=== PATIENT | female | born 1935 | race Caucasian/White ===

== ENCOUNTER 2019-05-26 13:31 | Emergency (ER) | payer MEDICARE, BC ==
[~2019-05-26] VITALS: Ht 157.5 cm; Wt 44.0 kg
--- NOTE | 2019-05-26 13:36 | NUR ---
PT JANETTE RA 38 [facility] [place] for Low bp as per report, latest bp 131/70, PT IS AAOX3, NOT IN RESPIRATORY DISTRESS, HOOKED TO MONITOR, KEPT RESTED AND COMFORTABLE, WILL CONTINUE TO MONITOR.
[2019-05-26] MEDS ORDERED: TIMO5SOL11 EACHEYE (13:38)
[2019-05-26] MEDS ORDERED: CETI10TA14 PO (13:38)
[2019-05-26] MEDS ORDERED: CHOL100040 PO (13:38)
[2019-05-26] MEDS ORDERED: ASCO500T9 PO (13:38)
[2019-05-26] MEDS ORDERED: ASPI-1152 PO (13:38)
[2019-05-26] MEDS ORDERED: BRIN8DRO EACHEYE (13:38)
[2019-05-26] MEDS ORDERED: LEVO50TA8 PO (13:38)
[2019-05-26] MEDS ORDERED: MIDO5TAB4 PO ×2 (13:38→13:39)
[2019-05-26] MEDS ORDERED: GABA-534 PO (13:38)
[2019-05-26] MEDS ORDERED: LATA2.5D7 EACHEYE (13:38)
--- NOTE | 2019-05-26 13:45 | NUR ---
AWAITING ER MD FOR EVAL.
--- NOTE | 2019-05-26 14:15 | NUR ---
AT BEDSIDE FOR EVAL.
[2019-05-26] MEDS ORDERED: IV NS 0.9% 500 ML BAG IV ONE (15:00)
[2019-05-26 15:10] LABS: BASOPHILS # (AUTO) 0.1 /CMM (0.0-0.2); BASOPHILS % (AUTO) 0.6 % (0.0-2.0); EOSINOPHILS % (AUTO) 1.3 % (0.0-6.0); HEMATOCRIT 42 % (33-45); HEMOGLOBIN 13.5 g/dL (11.5-14.8); LYMPHOCYTES # (AUTO) 1.1 /CMM (0.8-4.8); LYMPHOCYTES % (AUTO) 11.2 % (20.0-44.0); MEAN CORPUSCULAR HGB CONC 32 g/dl (31.0-36.0); MEAN CORPUSCULAR VOLUME 98 fL (82-100); MONOCYTES # (AUTO) 0.4 /CMM (0.1-1.30); MONOCYTES % (AUTO) 4.6 % (2.0-12.0); NEUTROPHILS # (AUTO) 7.9 /CMM (1.8-8.9); NEUTROPHILS % (AUTO) 82.3 % (43.0-81.0); PLATELET COUNT (AUTO) 137 /CMM (150-450); RED BLOOD CELL COUNT(AUTO) 4.27 MIL/uL (4.0-5.2); WHITE BLOOD COUNT (AUTO) 9.6 K/uL (4.3-11.0)
[2019-05-26 15:19] LABS: CALCIUM, SERUM 9.3 mg/dL (8.5-10.1); CARBON DIOXIDE 23 mmol/L (21-32); CHLORIDE 104 mmol/L (98-107); CREATININE 1.2 mg/dL (0.6-1.3); GLUCOSE 114 mg/dL (74-106); POTASSIUM 4.7 mmol/L (3.5-5.1); SODIUM SERUM 136 mmol/L (136-145); UREA NITROGEN, BLOOD 25 mg/dL (7-18)
[2019-05-26 15:25] LABS: ALANINE AMINOTRANSFERASE 15 U/L (12-78); ALBUMIN 3.6 g/dL (3.4-5.0); ALKALINE PHOSPHATASE 77 U/L (46-116); ASPARTATE AMINOTRANSFERASE 26 U/L (15-37); BILIRUBIN,DIRECT 0.1 mg/dL (0.0-0.2); BILIRUBIN,TOTAL 0.6 mg/dL (0.2-1.0); TOTAL PROTEIN, SERUM 7.4 g/dL (6.4-8.2)
--- NOTE | 2019-05-26 16:05 | NUR ---
URINE SPECIMEN COLLECTED AND SENT TO LAB
[2019-05-26 16:16] LABS: APPEARANCE,URINE Clear (CLEAR); BILIRUBIN,URINE Negative (NEGATIVE); BLOOD, URINE Negative Ery/uL (NEGATIVE); COLOR,URINE Yellow (YELLOW); KETONES,URINE Negative (NEGATIVE); LEUKOCYTE ESTERASE ,URINE Negative (NEGATIVE); NITRITE, URINE Negative (NEGATIVE); PROTEIN,URINE 30 mg/dl (NEGATIVE); UGLUCOSE Negative (NEGATIVE); UROBILINOGEN,URINE 0.2 EU/dL (0.2)
[2019-05-26 16:18] LABS: BACTERIA,URINE Few /HPF (None Seen); COARSE GRANULAR CASTS,URINE Few /LPF (None Seen); HYALINE CASTS, URINE Few /LPF (None Seen); MUCUS,URINE Moderate /LPF (None Seen); RBC,URINE 0-2 /HPF (0-2); SQUAMOUS EPITHELIAL CELL,UR Few /HPF (None Seen); WBC,URINE 0-2 /HPF (0-3)
[2019-05-26 16:48] VITALS: BP 158/82
--- NOTE | 2019-05-26 16:48 | NUR ---
IV removed. Catheter intact and site benign. Pressure and 4x4 applied to site. No bleeding noted. Patient discharged to home in stable condition. Written and verbal after care instructions given. Patient verbalizes understanding of instruction.
== END 2019-05-26 16:48 | disposition home or self-care (01) ==
LOC: ER 13:35
DX: R42 Dizziness and giddiness (principal); I10 Essential (primary) hypertension; E78.00 Pure hypercholesterolemia, unspecified; I48.91 Unspecified atrial fibrillation; Z95.0 Presence of cardiac pacemaker; Z95.818 Presence of other cardiac implants and grafts; Z88.0 Allergy status to penicillin; Z88.6 Allergy status to analgesic agent; Z88.8 Allergy status to other drugs, medicaments and biological substances; Z79.899 Other long term (current) drug therapy; Z79.82 Long term (current) use of aspirin
CPT/HCPCS: 36415; 80048; 80076; 81001; 84484; 85025; 93005; 99284; J7040; 81000-TC

== ENCOUNTER 2019-07-09 19:27 | Inpatient (IN) | payer MEDICARE, BC ==
[~2019-07-09] VITALS: Ht 147.3 cm; Wt 42.2 kg
[~2019-07-09 19:27] MED LIST: ASCO-352 PO; ASPI-1152 PO; BRIN8DRO EACHEYE; CETI10TA14 PO; CHOL100040 PO; GABA-534 PO; LATA2.5D7 EACHEYE; LEVO50TA8 PO; MIDO5TAB4 PO; TIMO5SOL11 EACHEYE
[2019-07-09] MEDS ORDERED: ALBUTEROL FS 2.5 MG/3 ML VIAL.NEB NEB ONE (20:00)
[2019-07-09] MEDS ORDERED: IPRATROPIUM NEB FS 0.5 MG/2.5 ML AMPUL.NEB NEB ONE (20:00)
[2019-07-09] MEDS ORDERED: IPRATROPIUM NEB FS 0.5 MG/2.5 ML AMPUL.NEB ONE (20:07)
[2019-07-09] MEDS ORDERED: ALBUTEROL FS 2.5 MG/3 ML VIAL.NEB ONE (20:07)
[2019-07-09 20:31] LABS: BASOPHILS % (AUTO) 0.3 % (0.0-2.0); EOSINOPHILS % (AUTO) 2.2 % (0.0-6.0); HEMATOCRIT 44 % (33-45); HEMOGLOBIN 13.9 g/dL (11.5-14.8); LYMPHOCYTES # (AUTO) 1.7 /CMM (0.8-4.8); LYMPHOCYTES % (AUTO) 11.7 % (20.0-44.0); MEAN CORPUSCULAR HGB CONC 32 g/dl (31.0-36.0); MEAN CORPUSCULAR VOLUME 98 fL (82-100); NEUTROPHILS # (AUTO) 11.7 /CMM (1.8-8.9); NEUTROPHILS % (AUTO) 78.8 % (43.0-81.0); PLATELET COUNT (AUTO) 210 /CMM (150-450); RED BLOOD CELL COUNT(AUTO) 4.46 MIL/uL (4.0-5.2); WHITE BLOOD COUNT (AUTO) 14.8 K/uL (4.3-11.0)
[2019-07-09 20:49] LABS: CALCIUM, SERUM 9.4 mg/dL (8.5-10.1); CARBON DIOXIDE 34 mmol/L (21-32); CHLORIDE 100 mmol/L (98-107); CREATININE 0.9 mg/dL (0.6-1.3); GLUCOSE 146 mg/dL (74-106); POTASSIUM 3.5 mmol/L (3.5-5.1); SODIUM SERUM 139 mmol/L (136-145); UREA NITROGEN, BLOOD 21 mg/dL (7-18)
[2019-07-09 20:53] LABS: ALANINE AMINOTRANSFERASE 30 U/L (12-78); ALBUMIN 3.6 g/dL (3.4-5.0); ALKALINE PHOSPHATASE 90 U/L (46-116); ASPARTATE AMINOTRANSFERASE 34 U/L (15-37); BILIRUBIN,DIRECT 0.1 mg/dL (0.0-0.2); BILIRUBIN,TOTAL 0.4 mg/dL (0.2-1.0); TOTAL PROTEIN, SERUM 7.8 g/dL (6.4-8.2)
--- NOTE | 2019-07-09 20:59 | NUR ---
DONE WITH BREATHING TX, FAMILY AT THE BED SIDE. PT REPORTED FEELING MUCH BETTER. O2 SAT INCREASE FROM 92 TO 98% ON R/A. WILL CONT TO MONITOR.
[2019-07-09] MEDS ORDERED: LEVOFLOXACIN 750 MG /D5W 150ML PIGGYBACK IV ONE (21:30)
[2019-07-09] MEDS ORDERED: IV NS 0.9% 500 ML BAG IV ONE (21:30)
--- NOTE | 2019-07-09 22:40 | NUR ---
PT WAS TRANSFERRED TO 116 . BED SIDE REPORT GIVEN TO SALLIE.
[2019-07-09 23:00] VITALS: BP 171/72
[2019-07-09] MEDS ORDERED: ACETAMINOPHEN 325 MG TABLET PO PRN (23:00)
[2019-07-09] MEDS ORDERED: ONDANSETRON HCL/PF 4 MG/2 ML VIAL IVP PRN (23:00)
[2019-07-09] MEDS ORDERED: HYDROCODONE/APAP 5/325MG 1 EACH TABLET PO PRN (23:00)
[2019-07-09] MEDS ORDERED: ZOLPIDEM TARTRATE 5 MG TABLET PO PRN (23:00)
[2019-07-09] MEDS ORDERED: MAGNESIUM HYDROXIDE 30 ML UDC PO PRN (23:00)
[2019-07-09] MEDS ORDERED: Z GUARD REMEDY 2 OZ OINT TP PRN (23:00)
[2019-07-09] MEDS ORDERED: MAG HYDROX/AL HYDROX/SIMETH 30 ML UDC PO PRN (23:00)
--- NOTE | 2019-07-09 23:36 | NUR ---
MS RN NOTE ADMITTED FEMALE PT 84 YEARS OLD FROM ER WITH THE DX OF SOB BY HERMILO HSU. A/O X 3, NO SOB, NO DISTRESS OR DISCOMFORT NOTED. PT WITH PRODUCTIVE COUGH, CRACKLES SOUNDS IN LUNG COLLINS ON AUSCULTATION. INFUSED LEVAQUIN WHICH IS STARTED IN ER LFA SL # 20 G INTACT AND PATENT. KEPT HER HOB ELEVATED. O2 3L VIA N/C O2 SAT 98%. DTR AT BED SIDE. SKIN ASSESSMENT DONE, PICTURES PLACED IN THE CHART. SIDE RAILS UP X 2 AND CALL LIGHT WITHIN REACH. CONTINUE TO MONITOR HER.
[2019-07-09] MEDS: HYDROCHLOROTHIAZIDE 25 MG TABLET PO SCH (23:52)
[2019-07-09] MEDS: GABAPENTIN 300 MG CAPSULE PO SCH (23:52)
--- NOTE | 2019-07-09 23:59 | NUR ---
MS RN NOTE DUE MEDS GIVEN. ALSO PT REQUESTING FOR SLEEPING MED. AMBIEN 5 MG PO GIVEN. CONTINUE TO MONITOR HER.
[2019-07-10] MEDS: ALBUTEROL HALF STRENGTH 1.25 MG/3 ML VIAL.NEB NEB SCH ×4 (00:32→19:56)
[2019-07-10] MEDS ORDERED: FUROSEMIDE 20 MG/2 ML VIAL IV SCH (01:00)
[2019-07-10] MEDS ORDERED: IPRATROPIUM NEB FS 0.5 MG/2.5 ML AMPUL.NEB NEB PRN (01:00)
[2019-07-10] MEDS ORDERED: ALBUTEROL HALF STRENGTH 1.25 MG/3 ML VIAL.NEB NEB PRN (01:00)
--- NOTE | 2019-07-10 03:35 | NUR ---
JIN RN NOTE PT IN BED AWAKE, BP CHECKED 238/122. HERMILO ORTHOPEDIC SHOE MAKER INFORMED. NEW ORDER RECEIVED. ORDER CARRIED OUT. PT STATUS CHANGED TO JIN. CHARGE NURSE INFORMED.
[2019-07-10 03:45] VITALS: BP 238/122
--- NOTE | 2019-07-10 03:47 | NUR ---
JIN RN NOTE HYDRALAZINE 10 MG IVP GIVEN FOR HIGH BP. PT IS IN NO DISTRESS OR DISCOMFORT. DENIES PAIN. WILL RECHECK BP IN 15 MINUTES.
[2019-07-10 04:00] VITALS: BP 93/38
[2019-07-10] MEDS ORDERED: hydrALAZINE HCL IV 20 MG VIAL IV PRN (04:00)
--- NOTE | 2019-07-10 06:44 | NUR ---
JIN RN NOTE PT IN BED ASLEEP, AROUSABLE. B/P RECHECK 112/46 HR 75. NO DISTRESS OR DISCOMFORT NOTED. NO S/S OF PAIN NOTED. WILL ENDORSE TO DAY SHIFT NURSE FOR CONTINUE TO MONITOR.
[2019-07-10 06:53] LABS: BASOPHILS % (AUTO) 0.2 % (0.0-2.0); EOSINOPHILS % (AUTO) 1.1 % (0.0-6.0); HEMATOCRIT 40 % (33-45); HEMOGLOBIN 12.8 g/dL (11.5-14.8); LYMPHOCYTES # (AUTO) 1.3 /CMM (0.8-4.8); LYMPHOCYTES % (AUTO) 8.2 % (20.0-44.0); MEAN CORPUSCULAR HGB CONC 32 g/dl (31.0-36.0); MEAN CORPUSCULAR VOLUME 96 fL (82-100); MONOCYTES # (AUTO) 0.9 /CMM (0.1-1.30); MONOCYTES % (AUTO) 5.8 % (2.0-12.0); NEUTROPHILS # (AUTO) 13.2 /CMM (1.8-8.9); NEUTROPHILS % (AUTO) 84.7 % (43.0-81.0); PLATELET COUNT (AUTO) 175 /CMM (150-450); RED BLOOD CELL COUNT(AUTO) 4.16 MIL/uL (4.0-5.2); WHITE BLOOD COUNT (AUTO) 15.6 K/uL (4.3-11.0)
[2019-07-10 07:11] LABS: CALCIUM, SERUM 8.9 mg/dL (8.5-10.1); CREATININE 0.9 mg/dL (0.6-1.3); MAGNESIUM 1.6 mg/dL (1.8-2.4); PHOSPHORUS 2.6 mg/dL (2.5-4.9); POTASSIUM 3.4 mmol/L (3.5-5.1)
--- NOTE | 2019-07-10 07:34 | NUR ---
TD RN OPENING NOTE RECEIVED PATIENT A/O X3 PATIENT IN BED WITH 3L OF O2 TOLERATING WELL WITH NO SIGN OF SOB. PATIENT HAS IV ACCESS ON LFA #20G S/L. ON THE MONITOR SHOWING SR IN THE 90'S. ALL SAFETY PRECAUTIONS APPLIED. BED ALARM ON WITH CALL LIGHT WITHIN REACH. WILL CONTINUE TO MONITOR PATIENT FOR MARITA.
[2019-07-10] MEDS: LEVOTHYROXINE SODIUM 50 MCG TABLET PO SCH (07:53)
[2019-07-10 08:00] VITALS: BP 122/40
[2019-07-10] MEDS: HYDROCHLOROTHIAZIDE 25 MG TABLET PO SCH (09:00)
[2019-07-10] MEDS: DORZOLAMIDE OPTH 2% 10 ML BOTTLE EACHEYE SCH ×2 (09:00→17:00)
[2019-07-10] MEDS: GABAPENTIN 300 MG CAPSULE PO SCH ×2 (09:09→17:22)
[2019-07-10] MEDS: CHOLECALCIFEROL (VITAMIN D 3) 400 UNIT TABLET PO SCH (09:10)
[2019-07-10] MEDS: ASCORBIC ACID 500 MG TABLET PO SCH (09:11)
[2019-07-10] MEDS: ASPIRIN EC 81 MG TABLET.DR PO SCH (09:12)
[2019-07-10] MEDS: TIMOLOL 0.5% SOLN OPHTH 5 ML BOTTLE EACHEYE SCH (09:22)
[2019-07-10] MEDS: BRIMONIDINE TARTRATE OPHT SOLN 5 ML BOTTLE EACHEYE SCH ×2 (09:23→17:22)
[2019-07-10] MEDS: IV D5/ 0.9% NACL 1,000 ML IV PRN (11:01)
[2019-07-10] MEDS ORDERED: POTASSIUM CHLORIDE 20 MEQ TAB.PRT.SR PO SCH (11:30)
[2019-07-10 12:00] VITALS: BP_SYST 124; BP_SYST 126; BP_DIAS 52
--- NOTE | 2019-07-10 12:09 | NUR ---
PROFESSIONAL ADVISOR NOTE PATIENT IN BED WITH NO SIGN OF ANY DISTRESS. PATIENT TOLERATING 3L OF 02 WITH NO SIGN OF ANY SOB. ALL SAFETY PRECAUTIONS APPLIED. ENDORSED PATIENT TO MORNING SHIFT NURSE FOR MARITA.
[2019-07-10] MEDS: Magnesium 1GM/D5W 100ML PREMIX 100 ML IV SCH ×2 (13:04→14:22)
[2019-07-10 16:00] VITALS: BP 138/46
--- NOTE | 2019-07-10 19:17 | NUR ---
BRANCH SERVICES MANAGER CLOSING NOTES Pt in bed, resting comfortably. No sob noted, vital signs wnl. Denies any pain or discomfort. IV line intact, patent and flushed well. No signs of infiltration noted. Keep patient clean and dry. Bed in low position and locked. Call light within reach. All needs met. Endorsed to [facility] shift for MARITA. Addendum: 07/10/19 at 1937 by VIJI GALLARDO RN Advance Directives copy from daughter was endorsed to [facility] shift corinna
[2019-07-10 20:00] VITALS: BP 108/53
[2019-07-10] MEDS ORDERED: LEVOFLOXACIN (500MG) 500 MG TABLET PO SCH (21:00)
[2019-07-10] MEDS: LATANOPROST EYE DROP 0.005% 2.5 ML BOTTLE EACHEYE SCH ×2 (21:36→22:11)
[2019-07-10] MEDS ORDERED: cetrizine 10 MG TABLET PO SCH (22:00)
--- NOTE | 2019-07-10 22:00 | NUR ---
TELE AUTOMATIC PILOT MECHANIC INITIAL NOTES Got report from another nurse dexter for continuation of patient care. seen pt in bed resting at this time with eyes closed, breathing even and non-labored , not in any acute distress noted. kept her warm and comfortable at all times. place call light at reach.
--- NOTE | 2019-07-11 | NUR ---
tele community coordinator for [employer] notes pt sleeping comfortably in bed without any acute distress noted. tele SR per monitor.
[2019-07-11 01:05] VITALS: BP 102/47
[2019-07-11] MEDS: IV D5/ 0.9% NACL 1,000 ML IV PRN (01:49)
[2019-07-11] MEDS: ALBUTEROL HALF STRENGTH 1.25 MG/3 ML VIAL.NEB NEB SCH ×4 (03:30→15:30)
[2019-07-11 04:00] VITALS: BP 127/79
[2019-07-11 07:08] LABS: BASOPHILS % (AUTO) 0.2 % (0.0-2.0); EOSINOPHILS % (AUTO) 1.6 % (0.0-6.0); HEMATOCRIT 40 % (33-45); HEMOGLOBIN 13.2 g/dL (11.5-14.8); LYMPHOCYTES # (AUTO) 1.8 /CMM (0.8-4.8); LYMPHOCYTES % (AUTO) 11.9 % (20.0-44.0); MEAN CORPUSCULAR HGB CONC 33 g/dl (31.0-36.0); MEAN CORPUSCULAR VOLUME 96 fL (82-100); MONOCYTES # (AUTO) 1.2 /CMM (0.1-1.30); MONOCYTES % (AUTO) 8.1 % (2.0-12.0); NEUTROPHILS # (AUTO) 11.5 /CMM (1.8-8.9); NEUTROPHILS % (AUTO) 78.2 % (43.0-81.0); PLATELET COUNT (AUTO) 164 /CMM (150-450); RED BLOOD CELL COUNT(AUTO) 4.14 MIL/uL (4.0-5.2); WHITE BLOOD COUNT (AUTO) 14.8 K/uL (4.3-11.0)
[2019-07-11 07:27] LABS: CALCIUM, SERUM 8.8 mg/dL (8.5-10.1); MAGNESIUM 2.2 mg/dL (1.8-2.4); PHOSPHORUS 2.5 mg/dL (2.5-4.9); POTASSIUM 3.6 mmol/L (3.5-5.1)
--- NOTE | 2019-07-11 07:37 | NUR ---
tele laundry manager closing notes pt awake and alert , morning care done. all due meds given and all needs met. stable hector the night and slept well. Tele SR wiht pAC per monitor. kept her warm and comfortable at all times. place call light at reach. will endorse to am nurse for continuity of care.
[2019-07-11 08:00] VITALS: BP 135/57
--- NOTE | 2019-07-11 08:00 | NUR ---
ms rn received on bed, awake,alert,oriented x3,not in any form of distress, respirations even and unlabored,no sob noted,all needs attended.
[2019-07-11] MEDS: ASPIRIN EC 81 MG TABLET.DR PO SCH (08:44)
[2019-07-11] MEDS: CHOLECALCIFEROL (VITAMIN D 3) 400 UNIT TABLET PO SCH (08:44)
[2019-07-11] MEDS: GABAPENTIN 300 MG CAPSULE PO SCH (08:44)
[2019-07-11] MEDS: ASCORBIC ACID 500 MG TABLET PO SCH (08:45)
[2019-07-11] MEDS: HYDROCHLOROTHIAZIDE 25 MG TABLET PO SCH (08:46)
[2019-07-11] MEDS: LEVOTHYROXINE SODIUM 50 MCG TABLET PO SCH (08:47)
[2019-07-11] MEDS: BRIMONIDINE TARTRATE OPHT SOLN 5 ML BOTTLE EACHEYE SCH (08:59)
[2019-07-11] MEDS: DORZOLAMIDE OPTH 2% 10 ML BOTTLE EACHEYE SCH (09:00)
[2019-07-11] MEDS: TIMOLOL 0.5% SOLN OPHTH 5 ML BOTTLE EACHEYE SCH (09:00)
--- NOTE | 2019-07-11 09:00 | NUR ---
ms weinstein breakfast served,due meds given,tolerated well.
--- NOTE | 2019-07-11 10:00 | NUR ---
ms rn was seen by salvador judd w/ order to be discharge today.
[2019-07-11] MEDS ORDERED: LEVO500T2 PO (11:24)
[2019-07-11 12:00] VITALS: BP 128/68
--- NOTE | 2019-07-11 15:00 | NUR ---
ms rn patient is ready to go home,refused to take discharge pictures cannot wait so w/ family.
[2019-07-11 16:00] VITALS: BP 130/70
--- NOTE | 2019-07-11 16:00 | NUR ---
ms rn patient went home via family's private car, cannot wait for the transportation to come,
== END 2019-07-11 16:00 | DRG 189 ==
LOC: ER 19:30 → MEDSG1 22:15 → TELE-TD 07-10 03:51 → TELE1 07-10 11:38
PROVIDERS: ADMIT Nurse Practitioner Acute Care; ATTEND Internal Medicine
DX: J96.01 Acute respiratory failure with hypoxia (principal); J15.9 Unspecified bacterial pneumonia; I50.33 Acute on chronic diastolic (congestive) heart failure; I16.9 Hypertensive crisis, unspecified; J98.11 Atelectasis; I11.0 Hypertensive heart disease with heart failure; J20.9 Acute bronchitis, unspecified; I48.91 Unspecified atrial fibrillation; Z95.2 Presence of prosthetic heart valve; I25.10 Atherosclerotic heart disease of native coronary artery without angina pectoris; E78.5 Hyperlipidemia, unspecified; Z88.5 Allergy status to narcotic agent; Z88.0 Allergy status to penicillin; Z88.8 Allergy status to other drugs, medicaments and biological substances; Z79.82 Long term (current) use of aspirin; Z79.899 Other long term (current) drug therapy; E03.9 Hypothyroidism, unspecified; Z95.1 Presence of aortocoronary bypass graft; E86.0 Dehydration; E78.00 Pure hypercholesterolemia, unspecified
CPT/HCPCS: 36415; 71045-TC; 80048-TC; 80061-TC; 80076-TC; 83605-TC; 83735-TC; 84100-TC; 84484-TC; 85025-TC; 85730-TC; 87040-TC; 87081-TC; 93307-TC; 97110-TC; 97116-TC; 97530-TC; G0378; J0360; J1940; J1956; J3475; J7040; J7042